=== PATIENT | male | born 1965 | race Caucasian/White ===

== ENCOUNTER → 2017-11-10 07:13 | Outpatient (CLI) | payer BC, SELFPAY ==
[2017-11-10 08:18] LABS: Anion Gap 5 (5-15); BUN 17 mg/dL (7-18); BUN/Creat Ratio 21.1 RATIO (10-20); Calcium,Total 8.8 mg/dL (8.5-10.1); Chloride 106 mmol/L (98-107); EST Glomerular Filtration Rate 106 mL/min (>60); Est Glom Filt Rate - Afr Amer 129 mL/min (>60); Glucose 88 mg/dL (74-106); Sodium Level 142 mmol/L (136-145)
== END ==
PROVIDERS: Family Provider Family Medicine; PCP Family Medicine; Visit Provider Family Medicine
DX: Z51.81 Encounter for therapeutic drug level monitoring (principal)
CPT/HCPCS: 36415; 80048

== ENCOUNTER → 2021-05-09 06:57 | Outpatient (CLI) | payer BC, SELFPAY ==
--- NOTE | 2021-05-09 07:01 | ECHOD_ITS ---
Version 3 Reason For Study: Chest tightness Procedure This was a 2D Doppler, Color Flow transthoracic echocardiogram. Exam performed in department. Left Ventricle Normal LV size. Left ventricular systolic function is normal. The estimated ejection fraction is 60 %. Stage 1 diastolic dysfunction. No regional wall motion abnormalities noted. Right Ventricle Normal RV size. Normal systolic function. Atria Normal left atrium. Normal right atrium. Mitral Valve Moderate mitral valve prolapse. Trivial eccentric mitral valve insufficiency. Tricuspid Valve Normal tricuspid valve. Mild tricuspid valve insufficiency. Aortic Valve Normal aortic valve. Trisinus/trileaflet aortic valve. Pulmonic Valve Normal pulmonic valve. Great Vessels Normal aortic root. The pulmonary artery is normal size. Normal inferior vena cava. Pericardium/Pleural No pericardial effusion. MMode/2D Measurements & Calculations LVIDd: 4.8 cm IVSd: 1.5 cm Ao root diam: 3.8 cm LVIDs: 3.7 cm LVPWd: 1.2 cm RVDd: 3.8 cm FS: 24.6 % LAV(MOD-bp): 54.8 ml LVAd ap4: 41.2 cm2 LVAd ap2: 37.5 cm2 LAV(MOD-bp) Indexed: 26.2 ml/m2 LVLd ap4: 9.9 cm LVLd ap2: 9.2 cm LAV(MOD-sp2): 81.8 ml EDV(MOD-sp4): 143.2 ml EDV(MOD-sp2): 128.8 ml LAV(MOD-sp4): 34.4 ml EDV(sp4-el): 144.7 ml EDV(sp2-el): 130.1 ml LVAs ap4: 27.0 cm2 LVAs ap2: 27.4 cm2 LVLs ap4: 9.3 cm LVLs ap2: 9.4 cm ESV(MOD-sp4): 69.3 ml ESV(MOD-sp2): 70.5 ml ESV(sp4-el): 66.6 ml ESV(sp2-el): 68.2 ml EF(MOD-sp4): 51.6 % EF(MOD-sp2): 45.2 % EF(sp4-el): 53.9 % SV(MOD-sp4): 73.8 ml SV(MOD-sp2): 58.3 ml SV(sp4-el): 78.1 ml LA A4 area: 14.5 cm2 RA A4 area: 16.5 cm2 Doppler Measurements & Calculations MV E max cuco: 43.5 cm/sec Lat Peak E' Cuco: 3.6 cm/sec Med Peak E' Cuco: 6.3 cm/sec MV A max cuco: 62.4 cm/sec E/E' lat: 12.2 E/E' med: 6.9 MV E/A: 0.70 Ao V2 max: 114.8 cm/sec LV V1 max: 91.8 cm/sec PA V2 max: 71.7 cm/sec Ao max P.3 mmHg LV V1 max P.4 mmHg TR max cuco: 201.0 cm/sec TR max P.2 mmHg ECHO/Echo Complete Interpretation Summary Normal LV size. Left ventricular systolic function is normal. The estimated ejection fraction is 60 %. Stage 1 diastolic dysfunction. Moderate mitral valve prolapse. Trivial eccentric mitral valve insufficiency. Ordering Physician: Elisa Lobo Referring Physician: Elisa Lobo Performed By: Beryl Barber RDCS
--- NOTE | 2021-05-09 17:01 | STRESSREP ---
Stress Test Report Exercise mild cardial perfusion stress test. 56-year-old man with a family history of coronary disease. Medications atorvastatin and lisinopril and fish oil. Stress protocol: Resting EKG demonstrates sinus bradycardia with a rate of 54 bpm normal intervals are noted resting blood pressure is 148/90 mmHg. The patient exercised according to regular Josias protocol for total duration of 11 minutes and 30 seconds. Patient completed 2 minutes and 30 seconds into stage IV of the Josias protocol. The maximum heart rate attained was 144 bpm which was 88% of max impact at heart rate the maximum workload was 13.7 metabolic equivalents. At rest there were no ST or T wave changes noted to suggest ischemia and at peak exercise upsloping ST changes were noted with did not meet the criteria for ischemia. No clinical angina was noted. The peak blood pressure was 210/96 mmHg. Myocardial perfusion protocol. 12.0 mCi of technetium 99m sestamibi was injected at rest. The patient exercised according to regular Josias protocol for total duration of 11 minutes and 30 seconds and at peak exercise 34.7 mCi of technetium 99m sestamibi was injected stress images were obtained stress and rest images were reconstructed and compared in the short axis vertical long horizontal long axis. Gated images were also obtained. Perfusion SPECT analysis: Review of the stress images demonstrate normal uptake of tracer noted in all areas of the myocardium. The resting images similarly demonstrate normal uptake of tracer noted in all areas of the myocardium. No areas of reversibility are noted to suggest ischemia and no previous infarct is noted. Gated SPECT analysis: The gated ejection fraction is 60%. Conclusion: Normal exercise myocardial perfusion stress test. Preserved ejection fraction.
== END ==
PROVIDERS: PCP Family Medicine; Referring Provider Family Medicine; Visit Provider Family Medicine
DX: R07.89 Other chest pain (principal); Z82.49 Family history of ischemic heart disease and other diseases of the circulatory system
CPT/HCPCS: 78452; 93017; 93306; A9500; A4216